=== PATIENT | female | born 1995 | race Caucasian/White ===

== ENCOUNTER → 2017-01-10 | Outpatient (CLI) | payer OTHER ==
--- NOTE | 2017-01-10 11:05 | DIAGNOSTIC IMAGING REPORT ---
L FOOT MIN 3 VIEWS HISTORY: 21 years-old Female LEFT FOOT PAIN acute left-sided foot pain without reported trauma. Initial exam. COMPARISON: None available TECHNIQUE: 3 views of the left foot FINDINGS: No acute fracture, dislocation or significant degenerative changes. No evidence of tarsal coalition. No opaque foreign body identified. Mild soft tissue swelling is noted involving the lateral aspect of the fifth metatarsal-phalangeal joint. IMPRESSION: Mild soft tissue swelling lateral to the fifth metatarsal phalangeal joint. No acute bony abnormality identified. The above report was generated using voice recognition software. It may contain grammatical, syntax or spelling errors. Electronically signed by: Guanaco Mccall M.D. 01/10/2017 11:04 AM Dictated Date/Time: 01/10/2017 11:02 AM
== END | disposition home or self-care (01) ==
LOC: C.RDSM 07:45
PROVIDERS: ATTEND Family Medicine
DX: M79.672 Pain in left foot (principal)